=== PATIENT | male | born 1960 | race Caucasian/White ===

== ENCOUNTER → 2021-04-25 09:37 | Outpatient (CLI) | payer OTHER, SELFPAY ==
--- NOTE | 2021-04-25 09:40 | DI.RAD.S_ITS ---
PROCEDURE: XR KUB INDICATIONS: L flank pain, hematuria TECHNIQUE: One view of the abdomen acquired. COMPARISON: None. FINDINGS: Surgical changes and devices: None. Bowel: Bowel gas pattern is nonobstructive. Soft tissues: There is a 7 mm calcification projecting near the lower aspect of the left renal shadow versus expected location of the proximal left ureter. No suspicious abdominal calcifications. Visualized solid organ contours appear normal in size. Bones: No suspicious bony lesions. IMPRESSION: A 7 mm soft tissue calcification projects near the lower aspect of the left renal shadow versus expected location of the proximal left ureter which may represent a renal stone. Otherwise, no acute radiographic abnormalities identified in the abdomen. Dictated by: Nikita Curtis M.D. on 04/25/2021 at 10:00 Approved by: Nikita Curtis M.D. on 04/25/2021 at 10:03
[2021-04-25 10:23] LABS: Add Manual Diff / Slide Review NO; Basophils Absolute Auto 0 /uL (0-100); Basophils Percent Auto 0.2 % (0-2); Eosinophils Absolute Auto 0 /uL (0-450); Hematocrit 45.1 % (41-53); Hemoglobin 15.1 g/dL (13.5-17.5); Lymphocytes Absolute Auto 800 /uL (1100-4500); Mean Corpuscular HGB Conc 33.5 % (30-36); Mean Corpuscular Hemoglobin 28.6 PG (26-34); Mean Corpuscular Volume 85.2 fL (80-100); Monocytes Absolute Auto 700 /uL (0-900); Monocytes Percent Auto 6.3 % (3-14); Neutrophils Absolute Auto 10000 /uL (1500-7000); Neutrophils Percent Auto 86.5 % (50-75); Platelet Count 250 X10^3/uL (150-400); Red Blood Cell Count 5.29 X10^6/uL (4.5-5.9); Red Cell Distribution Width 13.3 % (11.6-14.8); White Blood Cell Count 11.6 X10^3/uL (4.5-11.0)
[2021-04-25 10:41] LABS: Alanine Aminotransferase 30 IU/L (<50); Albumin 4.8 g/dL (3.5-5.0); Albumin Globulin Ratio 1.9 (1.0-2.8); Alkaline Phosphatase 51 U/L (38-126); Aspartate Aminotransferase 30 IU/L (17-59); BUN Creatinine Ratio 13.9 (6-22); Bilirubin Total 0.7 mg/dL (0.2-1.3); Blood Urea Nitrogen 19 mg/dL (9-20); Calcium 9.5 mg/dL (8.4-10.2); Carbon Dioxide 25 mmol/L (22-32); Chloride 101 mmol/L (98-107); Estimated Glomerular Filt Rate 52.8 mL/min (>60); Globulin 2.5 g/dL (1.7-4.1); Glucose 134 mg/dL (80-110); HEMOLYSIS < 15 (0-50); Potassium 4.9 mmol/L (3.4-5.1); Sodium 137 mmol/L (137-145); Total Protein 7.3 g/dL (6.3-8.2)
== END ==
PROVIDERS: Referring Provider Physician Assistant; Visit Provider Physician Assistant
DX: R10.9 Unspecified abdominal pain (principal); R31.9 Hematuria, unspecified
CPT/HCPCS: 36415; 74018; 80053; 85025

== ENCOUNTER → 2021-10-09 09:15 | Outpatient (CLI) | payer OTHER, SELFPAY ==
[2021-10-09 13:41] LABS: COVID19 -Nasal RAPID Negative (Negative)
== END ==
PROVIDERS: Visit Provider Family Medicine Sleep Medicine
DX: Z20.822 Contact with and (suspected) exposure to COVID-19 (principal)
CPT/HCPCS: 87635; C9803

== ENCOUNTER 2021-10-10 14:38 | Day surgery (SDC) | payer OTHER, SELFPAY ==
--- NOTE | 2021-10-10 12:14 | P.HP_ITS ---
History of Present Illness History of Present Illness Chief complaint: [facility] [place] Narrative: 60 Years Old Male seen today for consideration of a screening colonoscopy. There have been no lower GI symptoms suggesting disease such as change in bowel habits, bleeding, abdominal pain or anemia. History of colon polyps in his brother. Overall health issues have been stable, including no major cardiac events for at least 6 weeks. Past Medical History: BPH Nephrolithiasis Past Surgical History: No Surgeries Family History: Father: HTN, hyperlipidemia, depression Mother: Siblings: 2 living. 1 -drown Brother: colon polyps Social History: Marital Status: Children: Occupation: captain/fishing [employer] Household Members: - Dori Education: 12 Alcohol drinks/day: 2/day Patient History Family & Social History Tobacco & Substance use: Smoking Status Never smoker Meds Home Medications and Allergies Home Medications Medication Instructions Recorded Confirmed Type ondansetron 4 mg disintegrating 4 mg PO Q6-8H PRN #14 tab 04/25/21 10/10/21 Rx tablet tamsulosin 0.4 mg capsule 0.4 mg PO DAILY 10/10/21 10/10/21 History Allergies Allergy/AdvReac Type Severity Reaction Status Date / Time No Known Drug Allergies Allergy Verified 10/10/21 14:51 Review of Systems Review of Systems Narrative: All remaining ROS were reviewed and negative except as addressed. Exam Narrative Exam Narrative: GENERAL: Alert and oriented, appearing stated age and in no acute distress. HEENT: Head normocephalic/atraumatic. Extraocular movements intact. LUNGS: Clear to ausculation bilaterally, no wheezes, rhonchi or rales. CV: Normal S1 and S2 with regular rate and rhythm, no audible murmurs, rubs or gallops. ABDOMEN: Soft, non-tender, non-distended, no organomegaly. Positive bowel sounds. EXTREMITIES: No clubbing, cyanosis, or edema. NEURO: Cranial nerves II through XII grossly intact, no focal deficits. PSYCH: Alert and oriented x 3. SKIN: No concerning lesions. Assessment & Plan Assessment & Plan narrative: 1. Family history of colon polyps 2. Screening for colon cancer Plan for colonoscopy. The nature and character of the procedure as well as anticipated results were discussed. The possibility of not completing the procedure was also discussed. Possible complications including aspiration pneumonia, bleeding, perforation and reaction to medications either for sedation or preparation and missed lesions were discussed. Questions were answered and proceeding to the colonoscopy was elected. Informed consent signed. I sincerely appreciate the referral allowing me to participate in this patient's care. Please contact me with any questions or concerns.
--- NOTE | 2021-10-10 12:17 | PM.OP.COLON ---
Operative Date/Time/Diagnoses Date of procedure: 10/10/21 Procedure Notes SCOAP/Timeout: 3:17 p.m. Procedure in detail: ENDOSCOPIST: Anais Fajardo MD Sedation RN: Joana Alfredo RN Sedation start time: 3:18 p.m. Sedation end time: 3:42 p.m. PROCEDURE: Colonoscopy INDICATIONS: 1. Family history of colon polyps 2. Screening for colon cancer MEDICATION: Levsin 0.125 mg sublingual, incremental doses of Versed and fentanyl until appropriate level sedation achieved. ASA CLASS: 1 CECAL WITHDRAWAL TIME: 6 minutes COMPLICATIONS: None. EXTENT OF PROCEDURE: Cecum. QUALITY OF PREP: Good with portions of liquid stool. PROCEDURE: Prior to insertion of the colonoscope, a digital rectal examination was accomplished with circumferential palpation of the distal rectal mucosa without significant findings being noted. The high-definition colonoscope was passed into the rectum in the usual fashion and advanced over to the cecum without difficulty. The ileocecal valve, appendiceal stoma, and medial wall all could be inspected and no abnormalities were seen. ASCENDING COLON: As the colonoscope was withdrawn, care was taken to expose and inspect the haustral folds and no abnormalities were seen. HEPATIC FLEXURE: Normal, no polyps, diverticula or other abnormalities. TRANSVERSE COLON: Moderate diverticulosis, otherwise, no polyps or other abnormalities. DESCENDING COLON: Moderate diverticulosis, otherwise, no polyps or other abnormalities. SIGMOID COLON: Moderate diverticulosis, otherwise, no polyps or other abnormalities. RECTUM: Normal. J maneuver was produced. There was no significant perianal disease. The J maneuver was broken. The remainder of the rectum was inspected and there was minor external hemorrhoid disease. The scope was withdrawn. IMPRESSION: 1. Normal colonoscopy 2. Diverticulosis, transverse, descending, sigmoid, moderate 3. External hemorrhoids, minor PLAN: 1. Repeat colonoscopy in 5 years secondary to family history. The possibility of a missed lesion including a malignancy has been discussed with the patient previously. Potential alarm symptoms have been discussed and should be reported immediately.
[2021-10-10 14:52] VITALS: BP 123/82; PULSE 79; RESP 16; TEMP 36.4; O2SAT 97; BMI 32.3
[2021-10-10] MEDS: HYOSCYAMINE 0.125 MG TABLET PO (14:55)
[2021-10-10] MEDS: LACTATED RINGERS 1,000 ML 200 ML IV (15:01)
[2021-10-10] MEDS: fentaNYL 250 MCG/5 ML INJ 200 MCG IV (15:18)
[2021-10-10] MEDS: MIDAZOLAM 5 MG/5 ML VIAL 7 MG IV (15:18)
[2021-10-10 15:49] VITALS: BP 138/89; PULSE 73; RESP 16; TEMP 36.7; O2SAT 96
[2021-10-10 15:54] VITALS: BP 141/86; PULSE 711; RESP 14; O2SAT 95
[2021-10-10 16:00] VITALS: BP 124/78; PULSE 75; RESP 19; O2SAT 97
[2021-10-10 16:04] VITALS: BP 127/80; PULSE 68; RESP 14; TEMP 36.2; O2SAT 96
[2021-10-10 16:10] VITALS: BP 124/72; PULSE 68; RESP 16; TEMP 36.2; O2SAT 97
== END 2021-10-10 16:25 | disposition home or self-care (01) ==
PROVIDERS: Referring Provider Student in an Organized Health Care Education/Training Program; Visit Provider Student in an Organized Health Care Education/Training Program
PROC: 0DJD8ZZ Inspection of Lower Intestinal Tract, Via Natural or Artificial Opening Endoscopic (ICD-10-PCS; CPT 45378; principal; 2021-10-10 15:15)
DX: Z12.11 Encounter for screening for malignant neoplasm of colon (principal); Z83.71 Family history of colonic polyps; K57.30 Diverticulosis of large intestine without perforation or abscess without bleeding; K64.4 Residual hemorrhoidal skin tags
CPT/HCPCS: 45378; J2250; J3010